=== PATIENT | female | born 1950 | race Caucasian/White ===

== ENCOUNTER 2022-08-05 10:44 | Inpatient (IN) | payer OTHER ==
[~2022-08-05] VITALS: Ht 165.1 cm; Wt 92.9 kg
[2022-08-05] MEDS ORDERED: TYLENOL 325MG325 MG PO (15:33)
[2022-08-05] MEDS ORDERED: ALBUTEROL0.83 MG/ML IH (15:35)
[2022-08-05] MEDS ORDERED: PLAVIX 75MG TAB75 MG PO (15:36)
[2022-08-05] MEDS ORDERED: LOVENOX 4040 MG/0.4 SQ (15:36)
[2022-08-05] MEDS ORDERED: KEPPRA750 MG (15:37)
[2022-08-05] MEDS ORDERED: FOLIC ACID 11 MG/TA1 PO (15:37)
[2022-08-05] MEDS ORDERED: KEPPRA750 MG PO (15:37)
[2022-08-05] MEDS ORDERED: LEVAQUIN 750MG750 M1 PO (15:38)
[2022-08-05] MEDS ORDERED: FLAGYL500 MG PO (15:38)
[2022-08-05] MEDS ORDERED: MULTI-VITAMIN W1 TA1 PO (15:39)
[2022-08-05] MEDS ORDERED: MICATIN2% TP (15:39)
[2022-08-05] MEDS ORDERED: NORVASC 10MG10 MG PO (15:44)
[2022-08-05] MEDS ORDERED: ATACAND8 MG PO (15:45)
[2022-08-05] MEDS ORDERED: ASPIRIN 81M81 MG/TA2 PO (15:45)
[2022-08-05] MEDS ORDERED: COREG12.5 MG PO (15:45)
[2022-08-05] MEDS ORDERED: LIPITOR 40MG TA40 MG PO (15:46)
[2022-08-05] MEDS ORDERED: BUSPAR10 MG (15:46)
[2022-08-05] MEDS ORDERED: BUSPAR10 MG PO (15:47)
[2022-08-05] MEDS ORDERED: BANOPHEN25 M1 PO (15:50)
[2022-08-05] MEDS ORDERED: NEURONTIN300 MG/CAP PO (16:02)
[2022-08-05] MEDS ORDERED: NEURONTIN100 MG/CAP PO (16:02)
[2022-08-05] MEDS ORDERED: ATIVAN 0.50.5 MG/TAB PO (16:03)
[2022-08-05] MEDS ORDERED: MYRBETR50MG PO (16:04)
[2022-08-05] MEDS ORDERED: PRILOTC (16:05)
[2022-08-05] MEDS ORDERED: PAXIL40 MG PO (16:07)
[2022-08-05 20:49] VITALS: BP 141/84; PULSE 106
[2022-08-06 06:10] VITALS: BP 136/87; PULSE 99; TEMP 98
--- NOTE | 2022-08-06 06:54 | NUR ---
Shift report received from cnc machinist 2nd shift RN
--- NOTE | 2022-08-06 14:44 | NUR ---
Pt resting supine in bed watching a movie on her iPad. She reports upper back itching. Benadryl given at her request. Pt. denies having pain. Denies additional needs. Call light is in her reach. Bed alarm is on
--- NOTE | 2022-08-06 15:01 | NUR ---
SW contacted the patient's to complete intake, as the patient is new to [facility]. [place] [facility] with her , Dr. Home Callahan. Dr. Callahan reports that the patient was independent with ADLs before the stroke and did not use any DME. He states that they do have canes, walkers, crutches, and transport chairs available at home. The patient's PCP is Dr. Rakel Hernandez and she receives her medications from [facility]. The patient does not have a DPOA-HC in EMR, but Dr. Callahan states that she does have one completed and that it designates him. SW reviewed the IPR Team Conference Note with Dr. Callahan and discussed how the team plans to re-evaluate him next Thursday. Dr. Callahan verbalized understanding and is in agreement to the plan. He shares that their home is incompatible with anyone that needs to go up and down stairs. He states that he may put in a stairlift, but believes that the patient is going to need [facility] care for awhile, even after IPR. 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 SERAFIN provided the IPR Team Conference Note to the patient.
[2022-08-06 17:51] VITALS: BP 115/77; PULSE 80; TEMP 98.4
--- NOTE | 2022-08-06 19:50 | NUR ---
RECEIVED RETURN CALL FROM MITCH MO. SEE NEW ORDER.
--- NOTE | 2022-08-06 19:55 | NUR ---
PT NAUSEATED . ATTEMPTED TO CALL [facility]CH MO. NO ANSWER.
--- NOTE | 2022-08-06 21:00 | NUR ---
PT RESTING IN BED. FREQUENTLY GRAVITATES TO RT SIDE OF BED. REPOSITIONED. LT SIDE FLACCID. PT ALERT ORIENTED BUT THOUGHT PROCESS IS SCATTERED. SEE MAR FOR PHENERGAN/ATIVAN/ AND BENADRYL GIVEN. PT REPORTS BACK IS ITCHY. NO REDNESS NOTED. 1500CC/DAY FLUID RESTRICTION. SEIZURE PRECAUTIONS IN PLACE. NO SEIZURE ACTIVITY. CALL LIGHT IN REACH. BED ALARM SET.
--- NOTE | 2022-08-07 02:23 | NUR ---
PT AWAKE. ALL BELONGINGS ON FLOOR. HOB ALL THE WAY UP. PT CONFUSED. PT INCONTINENT OF STOOL. PUREWICK REPLACED. CHANGED LINENS AND GOWN. REPOSITIONED PT. SEE MAR FOR BENADRYL, ATIVAN AND TYLENOL. BUTTOCKS, LOWER BACK AND GROIN HAS RED RASH. APPLIED ZINC OINTMENT. STAGE 2 QUARTER SIZE TO LT INNER BUTTOCK. AIR MATTRESS PLACED ON BED. PT ANXIOUS AND RELATES LLE HURTS. CALL LIGHT IN REACH. BED ALARM SET.
--- NOTE | 2022-08-07 04:56 | NUR ---
PT HASN'T SLEPT MUCH THROUGH THE NIGHT. RESTLESS. REPOSITIONED. CALL LIGHTIN REACH. BED ALARM SET.
[2022-08-07 06:08] VITALS: BP 134/89; PULSE 100; TEMP 97.9
[2022-08-07 06:52] LABS: CALCIUM 9.3 mg/dL (8.4-10.2); CREATININE, serum 0.82 mg/dL (0.57-1.11); POTASSIUM 3.6 mmol/L (3.5-4.5)
--- NOTE | 2022-08-07 07:11 | NUR ---
BEDSIDE REPORT DONE. PATIENT RESTIN IN BED. INFORM NURSE SHE HAD AN ACCIDENT. PATIENT HAD A LARGE BOWEL MOVEMENT.
--- NOTE | 2022-08-07 11:26 | NUR ---
ASSESSMENT DONE ORDER. PATIENT AWAKE BUT CONFUSED. TALKING TO HER SISTER AND EVEN THOUGH THEY ARE NOT THERE. PATIENT RECEIVED BENADYL AND ATIVAN THIS MORNING AT 2 PM. IT WAS HARD TO WAKE PATIENT UP THIS MORNING, DID NOT EAT MUCH. TOOK MEDUCATION WITH APPLESAUSE.
--- NOTE | 2022-08-07 18:50 | NUR ---
Patient has been very talkative today.Talking and yelling out to her husbandand kids which they were not there. We try to use the purwex on patient but that was not successful. patient urinated twice in bed. Need help stand and sit to stand is what we have been using through out the day.
--- NOTE | 2022-08-07 20:00 | NUR ---
PT VISITING WITH FAMILY. PT IS ALERT BUT CONFUSED. DOES REMEMBER SPECIFIC LONG-TERM MEMORY. THOUGHT PROCESS IS SCATTERED AND CHANGING SUBJECT MATTER FREQUENTLY. PT CANT REMEMBER SHE IS IN [facility]. VERY RESTLESS. TAKES PERSONL ITEMS SHE HAS IN BASKETS AND DUMPS ON FLOOR OR IN BED WITH HER. USING CALL LIGHT CONTINUALLY. PT INCONTINENT URINE AND STOOL. CLEANED UP 2:1. CONTINUED SEIZURE PRECAUTIONS. NO SEIZURE ACTIVITY NOTED. SEE MAR FOR MELATONIN AND BENADRYL GIVEN. PTS BACK IT ITCHY6, NO RASH NOTED. PT RESTING ON AIRMATTRESS FOR SKIN INTEGRITY. CALL LIGHT IN REACH. BED ALARM SET.
--- NOTE | 2022-08-07 22:50 | NUR ---
PT STILL VERY ANXIOUS AND RESTLESS. REPOSITIONED SEVERAL TIMES. INCONT URINE A FEW TIMES. CLEANED UP. SEE MAR FOR ATIVAN GIVEN. CALL LIGHT IN REACH. BED ALARM SET.
--- NOTE | 2022-08-08 01:47 | NUR ---
PT STILL AWAKE AND CONFUSED. RESTLESS. PULLING BLANKETS OFF THE BED. INCONTINENT. CLEANED UP AND REPOSITIONED.
--- NOTE | 2022-08-08 05:19 | NUR ---
PT RECENTLY FELL ASLEEP. NO DISTRESS.
[2022-08-08 06:07] VITALS: BP 187/88; PULSE 104; TEMP 97.6
--- NOTE | 2022-08-08 06:21 | NUR ---
GAVE AM BP MEDS THIS AM FOR B/P 187/88. ORDERED BY MITCH MO.
--- NOTE | 2022-08-08 06:51 | NUR ---
ASSESSMENT DONE ORDER. PATIENT RESTING IN BED WTIH CALL LIGHT IN REACH
[2022-08-08 09:51] VITALS: BP 104/60; PULSE 73
[2022-08-08 17:05] VITALS: BP 125/75; PULSE 80; TEMP 97.7
--- NOTE | 2022-08-08 17:58 | NUR ---
THOUGH OUT THE WHOLE DAY, PATIENT HAS BEEN UP AND DOWN IN BED. URINATED MULITPE TIME IN BED. BED CHANGE 4TIMES TODAY. SLEEP DURING THERAPY WHICH PT AND OT WAS VERY UPSET REGARDING IT. EXPLAIN TO THEM AND DOCTOR ABOUT THE SITUATION. PATIENT HAS CHRONIC ANXIETY AND NEED ATIVAN TO HELP HER RELAX.PATIENT HAS BEEN CRAVING SODA ALL DAY. STATED THAT HE WILL BRING SODA TO HER AT NIGHT BUT FOR HER TO DRINK WATER THROUGH OUT THE DAY.PATIENT IS ON A FLUID RESTRICTION. PATIENT ALREADY HAD [address] PERRIN ORDER ATIVAN Q 4 HOURS ROUTINELY TO HELP HER WITH ANXIETY AND SEROQUEL AT NIGHT TO SLEEP. I ALSO EDUCATED THE FAMILY THAT THE VISITOR IS UP TO 8PM SINCE EVERYONE IS TIRED AND NEED TO SLEEP FOR THE NEXT DAY. UNDERSTOOD(DR MARQUEZ)
--- NOTE | 2022-08-08 19:08 | NUR ---
RECEIVED CHANGE OF SHIFT REPORT FROM DAY SHIFT RN.
[2022-08-09 05:36] VITALS: BP 145/73; PULSE 96; TEMP 98.1
--- NOTE | 2022-08-09 05:55 | NUR ---
REQUESTED AND GIVEN BENADRYL FOR REPORTED COMPLAINT OF ITCHING.
--- NOTE | 2022-08-09 07:06 | NUR ---
BEDSIDE REPORT DONE. PATIENT RESTING IN BED WITH CALL LIGHT IN REACH. NO DISTRESS. ALARM ON
--- NOTE | 2022-08-09 07:07 | NUR ---
CHANGE OF SHIFT REPORT GIVEN TO DAY SHIFT RNVERONICA.
--- NOTE | 2022-08-09 10:13 | NUR ---
ASSESSMENT DONE. PATIENT SLEPT UNTIL 805AM. NIGHT NURSE INFORM THAT SHE DID NOT GIVE THE 430 ATIVAN DUE TO SHE WAS SLEEPING.SLEPT ABOUT 8 HOURS. PATIENT WAS AWAKE WHEN PT/OT ARRIVED. ATE ABOUT 50% OF HER MEALS.
[2022-08-09 17:51] VITALS: BP 111/61; PULSE 88; TEMP 98.4
--- NOTE | 2022-08-09 17:57 | NUR ---
ATIVAN HAS BEEN GIVENQ 4 HRS AND IT HAS SLIGHTLY HELP PATIENT.STILL UP AND DOWN THROUGH OUT THE DAY BUTITWASN'T BAD. WILL CONTINUE TO MONITOR
--- NOTE | 2022-08-09 19:00 | NUR ---
RECEIVED CHANGE OF SHIFT REPORT FROM DAY SHIFT RN.
[2022-08-10 06:21] VITALS: BP 167/85; PULSE 88; TEMP 98.1
--- NOTE | 2022-08-10 06:45 | NUR ---
BEDSIDE REPORT DONE. PATIENT RESTIN IN BED WITH CALL LIGHT IN REACH
[2022-08-10 10:14] LABS: CALCIUM 9.4 mg/dL (8.4-10.2); CREATININE, serum 0.91 mg/dL (0.57-1.11)
--- NOTE | 2022-08-10 11:45 | NUR ---
ASSESSMENT DONE ORDER. PATIENT ABLE TO TURN ON LEFT SIDE WTIH SLIGHT HELP BUT UNABLE TO TURN ON RIGHT. PATIENT HAS BEEN SLEEPING SINCE 12 NOON. 430 AM DOSE OF ATIVAN WAS GIVEN DUE TO PATIENT WAS SLEEPING. PATIENT HAD A LARGE BOWEL MOVEMENT DURING MY SHIFT IN THE EARLY AM 640PM
--- NOTE | 2022-08-10 19:00 | NUR ---
RECEIVED CHANGE OF SHIFT REPORT FROM DAY SHIFT RN.
--- NOTE | 2022-08-10 23:07 | NUR ---
PATIENT PASSED MANY SMALL SEMIFORMED STOOLS FROM 1999 TO 2229.
--- NOTE | 2022-08-11 00:16 | NUR ---
VERY RESTLESS AT THIS TIME. SCHEDULED ATIVAN TAKEN, PATIENT REPORTS NEEDING TO BE REPOSITIONED REPEATED AND TAKING PERSONAL BLANKETS OFF WHILE COMPLAINING OF BEING COLD. PATIENT ALSO KEEPS STATING AT TIMES "I'M GOING OUT OF MY MIND".
--- NOTE | 2022-08-11 00:35 | NUR ---
PATIENT STILL RESTLESS BUT COOPERATIVE AT THIS TIME. BRIEF CHANGED, PATIENT VOIDED, UNABLE TO KEEP PUREWICK INPLACE AT THIS TIME.
--- NOTE | 2022-08-11 00:51 | NUR ---
PATIENT INCONTINENT AGAIN WITHIN A SHORT TIME SPAN OF LAST BRIEF CHANGE, PATIENT RESTLESS AND CONSTANT ROLLING FROM BACK TO LEFT SIDE AND THROWING BLANKETS ONTO FLOOR WHILE STATING SHE IS COLD. SEE MAR FOR MEDS GIVEN UP TO THIS POINT. CALL LIGHT MOST TIMES ON FLOOR ALONG WITH BLANKETS. MORE RESTLESS TONIGHT COMPARED TO LAST NIGHT.
[2022-08-11 00:56] VITALS: BP 131/80; PULSE 93; TEMP 98.2
[2022-08-11 04:13] VITALS: BP 141/78; PULSE 90; TEMP 97.6
--- NOTE | 2022-08-11 04:16 | NUR ---
PATIENT RESTLESS STILL DESPITE MEDS GIVEN, DENIES BEING IN HOSPITAL, STATES SHE IS HOME, WANTING TO "GET INTO HOT TUB". CONTINUES TO REMOVE BLANKETS, PILLOWS WHILE SAYING SHE IS COLD AND WANTS TO GO TO SLEEP OR GET IN HOT TUB TO WARM UP. VS DONE, AFEBRILE.
--- NOTE | 2022-08-11 04:42 | NUR ---
PATIENT HAS NOT SLEPT FOR ANY LENGTH OF TIME DURING THE NIGHT SO FAR, PATIENT STATES SHE IS DREAMING OF GOING PLACING, STILL STATES SHE'S GOING TO GET INTO THE HOT TUB STATING SHE IS AT HOME, REMEMBERS THE NAME OF THIS NURSE THOUGH WHEN SHE IS REMINDED OF BEING HERE AT [facility].
--- NOTE | 2022-08-11 05:17 | NUR ---
OBSERVED PATIENT SCRATCHING R BUTTOCK AREA, CAUSING HEALING SKIN SORE TO BLEED, EDGES CLEAN, AREA CLEANED AND COVERED WITH ZINC CREAM FOR PROTECTION.
--- NOTE | 2022-08-11 07:31 | NUR ---
CHANGE OF SHIFT REPORT GIVEN TO DAY SHIFT RNKESHA.
--- NOTE | 2022-08-11 08:30 | NUR ---
Resting in bed with eyes shut; will continue to monitor.
--- NOTE | 2022-08-11 13:00 | NUR ---
Up multiple times this shift to have a BM. Patient is usually incontinent and can only tell staff she needs to use the bathroom after she has been incontinent. Up with the sit-to stand with two staff members. Patient moved her "good arm" inside of the sit to stand sling multiple times while going up to standing position. This is dangerous for the patient as she could fall out of the sling. Therefore patient requires multiple reminders about how to appropriately use the [id number]-[id number] and frequent body repositions while in the sling.
--- NOTE | 2022-08-11 17:30 | NUR ---
Finished dinner independently. Takes pills whole without difficulty. Denies any concerns or needs at this time.
--- NOTE | 2022-08-11 22:21 | NUR ---
Patient assessed around 1954. At that time, assisted up with two assist with use of full body reza lift and transferred into wheelchair as requested. pushed patient in wheelchair, and assisted back into bed afterwards. Patient very confused. Keeps taking purewick out. Incontinent of bowel and bladder. Perineal hygiene care provided, and cream applied to bottom. Excoriation/macerated areas to bottom. Patient repositioned onto side, but does move around in bed often. Assisted patient with brushing teeth. Patient in bed with call light within reach. High fall risk precautions in place. Bed alarm on.
[2022-08-12 05:26] VITALS: BP 167/87; PULSE 95; TEMP 98.1
--- NOTE | 2022-08-12 05:52 | NUR ---
Confusion continues throughout the night. Has been incontinent of bladder, and kept taking purwick out due to it being uncomfortable. Checked and changed in bed. Patient was able to get some sleep tonight after receiving PRN Benadryl around 2315. Patient in bed with call light within reach. High fall risk precautions in place. Bed alarm on.
[2022-08-12 17:19] VITALS: BP 130/68; PULSE 85; TEMP 97
--- NOTE | 2022-08-12 23:00 | NUR ---
Patient pleasantly confused, at 1940 patient assisted up with 2 assist with the use of full body reza lift and transferred into the wheelchair as requested. pushed it in wheelchair and assisted back into the bed thereafter, noted excoriation to bottom, powder and cream applied. Patient incontinent of bladder, changed the pads and linens multiple times, head to toe assessment done, call light and personal items within reach, fall precautions in place, bed alarm on.
--- NOTE | 2022-08-13 04:31 | NUR ---
Complete bed change done d/t patient soaked with urine, noted blood streaks in the pad d/t patient kept scratching her bottom, applied aquacel foam to the scratch area, will continue to monitor.
[2022-08-13 06:27] VITALS: BP 184/102; PULSE 93; TEMP 97.4
[2022-08-13 06:37] VITALS: BP 173/103
--- NOTE | 2022-08-13 07:10 | NUR ---
BEDSIDE REPORT DONE ORDER. PATIENT RESTIN IN BED WITH CALL LIGHT IN REACH
--- NOTE | 2022-08-13 08:49 | NUR ---
ASSESSMENT DONE. PATIENT HAS BEEN SLEEPING SINCE 430AM. NIGHT NURSE SAID SHE WAS UP ALL NIGHT LONG. PATIENT HAS MOUTH OPEN RESTING AT 70DEGREE UP IN BED. RESTING PEACEFULLY. LUNG SOUND CLEAR, BOWEL SOUND ACTIVE. NO EDEMA NOTED.
[2022-08-13 10:19] LABS: COLLECTION METHOD CATHETER
[2022-08-13 10:36] LABS: MUCOUS Present (NOT PRESENT); SQUAMOUS EPITHELIAL 0-2 /hpf (0-10); URINE BACTERIA None Seen /hpf (NONE SEEN); URINE RBC 0-2 /hpf (0-2)
[2022-08-13 10:53] LABS: URINE APPEARANCE Clear (CLEAR/HAZY); URINE BLOOD Negative (NEGATIVE); URINE COLOR Yellow (YELLOW); URINE GLUCOSE Negative (NEGATIVE); URINE KETONE Negative (NEGATIVE); URINE NITRATE Negative (NEGATIVE); URINE PROTEIN(semi-quant) Negative (NEGATIVE); URINE UROBILINOGEN 0.2 E.U/dL (0.2-1.0)
--- NOTE | 2022-08-13 16:14 | NUR ---
Millinery Copyist contacted patient's , Dr. Callahan to review updates from the team. SW discussed recommendation for SNF and he is in agreement. Dr. Callahan advised at this time his preferences are 1) [facility] 2) [facility]. SW faxed referrals. SW met with patient and provided team conferences notes.
[2022-08-13 17:21] VITALS: BP 132/82; PULSE 81; TEMP 98.4
--- NOTE | 2022-08-13 18:34 | NUR ---
RECEIVED CHANGE OF SHIFT REPORT FROM DAY SHIFT RN. PATIENT IN BED, SPOUSE AT BEDSIDE. EXIT ALARMS IN PLACE, CALL LIGHT WITHIN REACH.
--- NOTE | 2022-08-13 18:55 | NUR ---
Dr hill visit patiENT TODAY FOR AN EVAL REGARDING BEHAVIORAL.DECREASE ATIVAN TO TWICE A DAY AND SEROQUEL 50MG AT NIGHT.
--- NOTE | 2022-08-13 22:41 | NUR ---
PATIENT RESTLESS, NOT SLEEPING, SEE MAR FOR MEDS GIVEN. KEEPS ASKING FOR HER SPOUSE AND DAUGHTER, REPEATEDLY INFORMED SHE IS IN THE HOSPITAL, HER FAMILY MEMBERS ARE AT HOME WITH PATIENT REPLY "OH YEAH THAT'S RIGHT, YOU TOLD ME THAT" OR "THAT'S WHAT THEY KEEP TELLING ME". OBSERVED PATIENT'S R SIDED EXTREMTIES ARE CONSTANTLY MOVING, OBSERVED PATIENT'S BLANKETS/BED COVERS TAKEN OFF OF HER BODY WITH PATIENT STATING "HELP ME I'M COLD".
--- NOTE | 2022-08-14 03:18 | NUR ---
OBSERVED PATIENT HAD LLE OVER BEDRAIL WHILE LAYING ON RIGHT SIDE, PATIENT STATING THEY NEEDS TO TURN TO THEIR LEFT SIDE, HAD CALL LIGHT IN HAND, BED ALARM SET OFF. PATIENT REPOSITIONED REQUESTED.
--- NOTE | 2022-08-14 06:49 | NUR ---
Shift report received from material handler 1st shift RN
--- NOTE | 2022-08-14 06:55 | NUR ---
CHANGE OF SHIFT REPORT GIVEN TO DAY SHIFT RNJOLLY.
[2022-08-14 07:11] VITALS: BP 136/67; PULSE 85; TEMP 98
--- NOTE | 2022-08-14 09:08 | NUR ---
Pt resting supine in bed. She has had 3 incontinent stools this morning. Pt. feels like the oatmeal she ate at breakfast has caused increased frequency of stools. She reports nausea and feeling "down and out". No abd. pain. No vomiting at this time. Order received for PRN Zofran. Will administer per order. Will continue to monitor
--- NOTE | 2022-08-14 11:09 | NUR ---
Pt is off the unit for Group Therapy
[2022-08-14 11:57] LABS: BASO # 0.1 K/mm3 (0.0-0.2); BASO % 0.7 % (0.0-2.0); EOS # 0.2 K/mm3 (0.0-0.7); EOS % 2.2 % (0.0-4.0); GRAN # 5.2 K/mm3 (1.4-6.5); GRAN % 65.1 % (42.2-75.2); HEMOGLOBIN 11.7 g/dl (12.5-16.0); LYMPH % 24.5 % (20.0-51.0); MEAN CELL VOLUME 94 fl (80.0-100.0); MEAN CORPUSCULAR HEMOGLOBIN 30 pg (27-31); MEAN CORPUSCULAR HGB CONC 32 g/dl (33.0-37.0); MEAN PLATELET VOLUME 9.2 fl (7.4-10.4); MONO # 0.6 K/mm3 (0.1-0.6); MONO % 7.3 % (1.7-9.3); PLATELET COUNT 346 K/mm3 (130-400); RED BLOOD COUNT 3.89 M/mm3 (4.10-5.30); REDCELL DISTRIBUTION WIDTH-CV 14.3 % (11.5-14.5)
[2022-08-14 12:03] LABS: HEMATOCRIT 36.4 % (37.0-47.0)
[2022-08-14 12:04] LABS: ALBUMIN 3.8 gm/dL (3.4-4.8); BILIRUBIN,TOTAL 0.3 mg/dL (0.2-1.2); CALCIUM 9.5 mg/dL (8.4-10.2); CREATININE, serum 0.84 mg/dL (0.57-1.11); POTASSIUM 4.6 mmol/L (3.5-4.5); TOTAL PROTEIN 6.9 gm/dL (6.2-8.1)
--- NOTE | 2022-08-14 12:10 | NUR ---
Pt back from Group Therapy. She remains in her wheelchair to eat lunch per PT recs. She denies pain/discomfort. Denies additional needs. Call light is in her reach. Chair alarm is on
--- NOTE | 2022-08-14 12:30 | NUR ---
Pt repositioned from wheelchair to bed at her request. Left arm/leg remain flaccid. Pt required use of sit/stand lift for transfer. Call light is in her reach. Bed alarm is on.
--- NOTE | 2022-08-14 12:56 | NUR ---
Pt resting in bed c/o "trouble breathing". Sp02 94% RA. LCTAB. Pt is currently drowsy but arouses from sleep. Pt. falls asleep while trying to converse w/ this telegraphic typewriter operator. RT contacted to administer neb tx
[2022-08-14 13:00] VITALS: BP 99/55; PULSE 70; TEMP 98.2
--- NOTE | 2022-08-14 15:36 | NUR ---
Pt is awake and alert in bed visiting with friends. She reports that shortness of breath has resolved. No further c/o nausea. Pt. denies additional needs at this time. Call light is in her reach. Bed alarm is on
--- NOTE | 2022-08-14 16:17 | NUR ---
Marketing Systems Analyst spoke with Adriana at [facility] who advised they could accept but would require a CARE assessment. SERAFIN followed up with Dr. Callahan who advised he would prefer [facility] as it is close to home. Isabel at [facility] advised they would like to accept, however they are not in network with patient's [employer], so patient would have a co-pay after day 20. Isabel spoke with Dr. Callahan who would possibly be agreeable to this but wants SERAFIN to contact [facility] to inquire about in network SNFs to make a more informed decision. SERAFIN contacted [facility] Vehicle Technician, Ava (ph#[phone]) and left a message.
[2022-08-14 17:15] VITALS: BP 130/73; PULSE 71; TEMP 98
--- NOTE | 2022-08-14 18:35 | NUR ---
Pt transferred to wheelchair using sit/stand lift. Pt. currently off the unit with to walk around the hospital
--- NOTE | 2022-08-14 20:30 | NUR ---
PT IN BED. RESTLESS. ORIENTED BUT SHORT TERM CONFUSED. HS MEDS GIVEN. PT INCONTINENT OF URINE AND SMEAR STOOL. CLEANED UP. REPOSITIONED. AIR MATTRESS IN PLACE. SEIZURE PRECAUTIONS CONTINUE. NO SEIZURES. CALL LIGHT IN REACH. BED ALARM SET.
--- NOTE | 2022-08-14 22:44 | NUR ---
PT USING CALL LIGHT FREQUENTLY AND YELLING OUT. REPOSITIONED SEVERAL TIMES. PT KEEPS TAKING OFF GOWN AND BLANKETS. THROWING ITEMS OFF THE TABLE. PT CHANGED SEVERAL TIMES FOR URINE INCONTINENCE. CONTINUED ANXIETY. REASSUSRED PT. CALL LIGHT IN REACH. BED ALARM SET.
--- NOTE | 2022-08-14 23:08 | NUR ---
PT INCONTINENT OF URINE AND SMALL BM. CHANGED. ZINC OINTMENT TO BUTTOCKS. REPOSITIONED. PT C/O ITCHING ALL OVER. NO RASH NOTED. GAVE BENADRYL. PT C/O LEGS ACHEY AND RESTLESS. TYLENOL GIVEN.
--- NOTE | 2022-08-15 00:47 | NUR ---
PT DROWSY BUT STILL RESTLESS. CONTINUES TAKING OFF GOWN AND BLANKETS. REPOSITIONED PT. USING CALL LIGHT FREQUENTLY.
--- NOTE | 2022-08-15 01:39 | NUR ---
PT INCONTINENT OF URINE. CLEANED UP. PLACED GOWN BACK ON. COVERED WITH SHEET AND BLANKET. CALL LIGHT IN REACH. BED ALARM SET.
--- NOTE | 2022-08-15 02:08 | NUR ---
PT STILL RESTLESS BUT DROWSY. WILL CONTINUE TO MONITOR.
--- NOTE | 2022-08-15 05:53 | NUR ---
PT SLEEPING. INCONTINENT OF URINE. CHANGED LINENS AND BRIEF. PT SLEPT THROUGH THIS TASK. CALL LIGHT IN REACH. BED ALARM SET.
[2022-08-15 06:00] VITALS: BP 132/74; PULSE 79; TEMP 97.7
--- NOTE | 2022-08-15 06:55 | NUR ---
BEDSIDE REPORT DONE. PATIENT RESTING IN BED BUT CALLED 5 TIMES IN THE 30 MIN. AT 650 UNTIL NOW, SHE IS RESTING. CALL LIGHT IN REACH
--- NOTE | 2022-08-15 10:32 | NUR ---
ASSESSMENT DONE ORDER. PATIENT ALERT X3 BUT CONFUSED. UNABLE TO MOVE LEFT SIDE , STILL FLACCID. NO PAIN NOTED BUT VERY ANXIOUS.LUNG CLEAR IN ALL LOBES.
--- NOTE | 2022-08-15 16:11 | NUR ---
Customer Service Operator met with patient and patient's , Dr. Callahan to review discharge plan. SW advised [facility], [facility], and [facility] were all in network with patient's insurance. Patient and Dr. Callahan would prefer discharge to [facility] at this time. SERAFIN contacted Adriana at [facility] and plan will be for discharge Thursday.
[2022-08-15 18:01] VITALS: BP 135/71; PULSE 84; TEMP 98
--- NOTE | 2022-08-15 19:02 | NUR ---
RECEIVED CHANGE OF SHIFT REPORT FROM DAY SHIFT RN.
--- NOTE | 2022-08-15 22:06 | NUR ---
FOR THE PAST 2 HOURS, PATIENT ENGAGED IN FREQUENT TEARING OFF OF HOSP BRIEFS STATING SHE NEEDED TO GET ON BEDPAN FREQUENTLY, SOMETIMES WITHIN MINUTES OF LAST REQUESTS, PATIENT STATING SHE NEEDED TO PUT HER LEGS OVER EDGE OF BED THEN GET UP IN BATHROOM OR SCRATCHING AT HER BUTTOCKS. OBSERVED NO BREAKAGE OF SKIN TO BUTTOCKS, MICATIN POWDER APPLIED TO BUTTOCKS/PERIAREA.
--- NOTE | 2022-08-15 23:03 | NUR ---
PATIENT CONTINUES TO BE RESTLESS, FREQUENTLY NEEDING BRIEFS CHANGED AND REPOSITIONED. TAKES OFF HER PERSONAL BLANKETS WHILE C/O OF HOW COLD SHE IS OR NEEDING THE WEIGHT OF THE BLANKETS ON HER.
[2022-08-16 00:20] VITALS: BP 117/62
--- NOTE | 2022-08-16 03:24 | NUR ---
PATIENT CONTINUES WITH CONSTANT MOVEMENT, STATES CANNOT CALM DOWN TO SLEEP BUT IS COOPERATIVE, AND SPEAKS NORMALLY, NO AGGRESSIVE BEHAVIOR OBSERVED. REPORTS IS ALWAYS ANXIOUS AT NIGHT AND HAS A HARD TIME SLEEPING EVEN BEFORE HOSPITALIZTIONS.
--- NOTE | 2022-08-16 06:06 | NUR ---
PATIENT FINALLY SLEPT FROM AROUND 0330 UNTIL NOW, WHERE PATIENT IS STILL SLEEPING, BREATHING NONLABORED AND EVEN. DOES NOW WAKE WHEN ROUND ENTERED BY NURSING ON ROUNDS SINCE AFTER 329. EXIT ALARM REMAINS ON AND CALL LIGHT WITHIN REACH.
[2022-08-16 06:46] VITALS: BP 122/68; PULSE 68; TEMP 98.5
--- NOTE | 2022-08-16 06:59 | NUR ---
CHANGE OF SHIFT REPORT GIVEN TO DAY SHIFT RNJOLLY.
--- NOTE | 2022-08-16 07:00 | NUR ---
Shift report received from night cleaner RN
--- NOTE | 2022-08-16 09:54 | NUR ---
Pt transferred to wheelchair using sit/stand lift. Pt. is off the unit for Group Therapy
--- NOTE | 2022-08-16 10:46 | NUR ---
Pt is back from Group Therapy. Pt. transferred to toilet then to bed using sit/stand lift. Daughter is at the bedside. Pt. denies additional needs this time. Call light is within her reach. Bed alarm is on
--- NOTE | 2022-08-16 11:27 | NUR ---
Pt c/o nausea. No vomiting. Phenergan given per PRN order at pt's request. is at the bedside. Pt. denies additional needs. Call light is in her reach
--- NOTE | 2022-08-16 12:51 | NUR ---
Pt incontinent of urine - bed change completed. Skin to coccyx/sacrum is red, blanches, and is intact. No scratches noted. Skin barrier ointment applied to bruce-areas. Pt. denies additional needs. HOB elevated to approx 60 degrees so pt can sit upright to eat lunch. Call light is in her reach. Bed alarm is on
--- NOTE | 2022-08-16 13:18 | NUR ---
Pt reporting that she is "not breathing as well as I'd like to". SpO2 93% RA. LCTAB. No coughing/wheezing. Resp. even and unlabored. Pt. requesting a neb. tx. RT contacted
[2022-08-16 17:39] VITALS: BP 124/72; PULSE 81; TEMP 97.8
[2022-08-17 05:48] VITALS: BP 109/59; PULSE 61; TEMP 97.4
--- NOTE | 2022-08-17 06:59 | NUR ---
Shift report received from restaurant shift leader RN
--- NOTE | 2022-08-17 08:28 | NUR ---
Pt sitting up in bed but is drowsy. PRN Ativan was given during the mold shifter. Pt. arouses easily from sleep but falls back asleep after opening her eyes. Pt. assisted with eating breakfast. No pain or discomfort. Call light is in her reach. Bed alarm is on
--- NOTE | 2022-08-17 11:23 | NUR ---
Pt awake and lying in bed. Incontinent of urine; incontinent care provided. Pt. repositioned to supine. She denies pain/discomfort. Denies feeling anxious or short of breath. Denies additional needs. Call light is in her reach. Bed alarm is on
[2022-08-17 13:50] VITALS: BP 116/57
[2022-08-17 16:55] VITALS: BP 155/67; PULSE 72; TEMP 97.7
--- NOTE | 2022-08-17 18:50 | NUR ---
Pt transferred to [facility] then wheelchair at 's request using sit/stand lift, 2 person assistance. Pt. is currently off the unit with her
--- NOTE | 2022-08-18 02:45 | NUR ---
[id number] restless and agitated, wants something for sleep, DOMINGA Anders notified and order rec'd for IM ziprexa, dose given @ 0038 IM in rt thigh. pt remained awake and agitated, gave prn ativan @ 0145, resting with eyes closed for brief periods then awakens and yells out for spouse, frequent reminders guven that pt in hospital and spouse is at home.
[2022-08-18 05:47] VITALS: BP 149/62; PULSE 59; TEMP 98.1
--- NOTE | 2022-08-18 06:00 | NUR ---
pt is just now trying to sleep, have done numerous linen changes tonight d/t incontinence of urine, pt pulls clothing and bedding off of bed and throws on floor, requests numerous times to be repositioned, within minutes of staff leaving room, she is back in same position, crooked/crossways in bed. calls out for even though she has had frequent reminders that she is in the hospital and he is at home. call light in place, bed alarms on
[2022-08-18] MEDS ORDERED: PLAVIX 75MG TAB75 MG PO (09:21)
[2022-08-18] MEDS ORDERED: LIPITOR 40MG TA40 MG PO (09:21)
[2022-08-18] MEDS ORDERED: SEROQUEL50 MG PO (09:22)
[2022-08-18] MEDS ORDERED: KEPPRA750 MG PO (09:22)
[2022-08-18] MEDS ORDERED: ZOFRAN ODT4 MG PO (09:24)
[2022-08-18] MEDS ORDERED: DESENEX TP (09:24)
[2022-08-18] MEDS ORDERED: ZINC OXIDE 28GM TOP (09:25)
[2022-08-18] MEDS ORDERED: THIAMINE 1100 MG/TAB PO (09:26)
[2022-08-18] MEDS ORDERED: ATIVAN 0.50.5 MG/TAB PO ×2 (09:26)
[2022-08-18] MEDS ORDERED: MELATIN 3 MG-11 TAB PO (09:26)
[2022-08-18] MEDS ORDERED: PHENERGAN 25 TA25 MG PO (10:19)
--- NOTE | 2022-08-18 13:59 | NUR ---
Has lack of transportation kept you from medical appts, meetings, work, or from getting things needed for daily living? NO How often do you feel lonely or isolated from those around you? OCCASIONALLY Over the past 5 days, how much of the time has pain made it hard for you to sleep? RARELY/NO AT ALL Over the past 5 days, how often have you limited your participation in therapy due to pain? OCCASIONALLY Over the past 5 days, how often have you limited your day-to-day activities because of pain? OCCASIONALLY
--- NOTE | 2022-08-18 14:49 | NUR ---
report called to [facility], pt transported to exit per , pt dismissed today, no further concerns
--- NOTE | 2022-08-18 16:10 | NUR ---
Director Of Informatics made arrangements for patient's discharge to [facility] today. Patient is agreeable to this plan. SERAFIN met with patient and completed CARE assessment, per [facility]'s request. SERAFIN faxed CARE to [facility] and also emailed it to [facility]. SERAFIN faxed discharge orders. Transport time set for 1400. SERAFIN contacted Dr. Callahan, patient's and notified him of discharge. Dr. Rakel Hernandez to follow patient's care at [facility].
--- NOTE | 2022-08-19 13:44 | NUR ---
Discharge QIM scores were reviewed by the team. Code of 1 chosen for toilet hygiene was determined by team discussion to be the most usual performance for this patient during the discharge assessment period. Code of 1 chosen for toilet transfer was determined by team discussion to be the most usual performance for this patient during the discharge assessment period. Code of 2 chosen for upper body dressing was determined by team discussion to be the most usual performance for this patient during the discharge assessment period. Code of 1 chosen for sit to lying was determined by team discussion to be the most usual performance for this patient during the discharge assessment period. Code of 2 chosen for lying to sitting on side of bed was determined by team discussion to be the most usual performance for this patient during the discharge assessment period.
== END 2022-08-18 14:50 | DRG 57 ==
PROVIDERS: Internal Medicine; ADMIT Physical Medicine & Rehabilitation Sports Medicine
DX: I69.354 Hemiplegia and hemiparesis following cerebral infarction affecting left non-dominant side (principal); E87.1 Hypo-osmolality and hyponatremia; G93.49 Other encephalopathy; I69.391 Dysphagia following cerebral infarction; I27.20 Pulmonary hypertension, unspecified; E83.42 Hypomagnesemia; E87.6 Hypokalemia; I10 Essential (primary) hypertension; F41.9 Anxiety disorder, unspecified; K21.9 Gastro-esophageal reflux disease without esophagitis; F32.A Depression, unspecified; G62.9 Polyneuropathy, unspecified; G47.00 Insomnia, unspecified; R26.89 Other abnormalities of gait and mobility; L89.302 Pressure ulcer of unspecified buttock, stage 2; R32 Unspecified urinary incontinence; R21 Rash and other nonspecific skin eruption; F10.21 Alcohol dependence, in remission; F42.9 Obsessive-compulsive disorder, unspecified; D72.828 Other elevated white blood cell count; R94.31 Abnormal electrocardiogram [ECG] [EKG]; R50.9 Fever, unspecified; I65.23 Occlusion and stenosis of bilateral carotid arteries; Z95.818 Presence of other cardiac implants and grafts; Z79.82 Long term (current) use of aspirin; Z73.6 Limitation of activities due to disability; Z79.02 Long term (current) use of antithrombotics/antiplatelets; Z79.899 Other long term (current) drug therapy; Z79.2 Long term (current) use of antibiotics; Z79.01 Long term (current) use of anticoagulants; R11.0 Nausea
CPT/HCPCS: A9284; J1650

== ENCOUNTER → 2023-02-01 | Outpatient (REF) | payer BC ==
[~2023-02-01] MED LIST: ALBUTEROL0.83 MG/ML IH; ASPIRIN 81M81 MG/TA2 PO; ATACAND8 MG PO; ATIVAN 0.50.5 MG/TAB PO; BANOPHEN25 M1 PO; BUSPAR10 MG; BUSPAR10 MG PO; COREG12.5 MG PO; DESENEX TP; FLAGYL500 MG PO; FOLIC ACID 11 MG/TA1 PO; KEPPRA750 MG; KEPPRA750 MG PO; LEVAQUIN 750MG750 M1 PO; LIORESAL 1010 MG/TAB PO; LIPITOR 10MG10 MG PO; LIPITOR 40MG TA40 MG PO; LOVENOX 4040 MG/0.4 SQ; MELATIN 3 MG-11 TAB PO; MELATONIN5 M1 SL; MICATIN2% TP; MIRALAX PA17 GM/Dose PO; MULTI-VITAMIN W1 TA1 PO; MYRBETR50MG PO; NEURONTIN100 MG/CAP PO; NEURONTIN300 MG/CAP PO; NEXIUM 20MG20 MG PO; NORVASC 10MG10 MG PO; PAXIL40 MG PO; PHENERGAN 25 TA25 MG PO; PLAVIX 75MG TAB75 MG PO; PRILOTC; SEROQUEL 1100 MG/TAB PO; SEROQUEL50 MG PO; TESSALON P100 MG/CAP PO; THIAMINE 1100 MG/TAB PO; TYLENOL 325MG325 MG PO; TYLENOL 8 HR PO; VALIUM 5MG T5 MG/TAB PO; VITAMINS A AND1 OIN TOP; VOLTAREN GEL 1%1 TU TP; ZINC OXIDE 28GM TOP; ZOFRAN ODT4 MG PO
[2023-02-01 13:48] LABS: CALCIUM 9.3 mg/dL (8.4-10.2); CREATININE, serum 0.82 mg/dL (0.57-1.11); POTASSIUM 3.9 mmol/L (3.5-4.5)
== END ==
LOC: ZCOL.LAB 13:28
PROVIDERS: Internal Medicine
DX: E78.5 Hyperlipidemia, unspecified (principal)

== ENCOUNTER → 2023-06-20 | Outpatient (CLI) | payer BC ==
[~2023-06-20] MED LIST changes: +CEFTIN500 MG PO; +KLONOPIN 1MG1 MG PO; +LASIX 20MG TABL20 MG PO; +LASIX 40MG TABL40 MG PO; +LIPITOR 80MG80 MG PO; +ONE DAILY ESSE0.5 MG PO; +OXYGEN NASAL.CANN; +PROTONIX 40MG T40 MG PO; +ZESTRIL2.5 MG PO
[2023-06-20 19:06] LABS: COLLECTION METHOD CLEAN CATCH
[2023-06-20 19:52] LABS: SQUAMOUS EPITHELIAL None Seen /hpf (0-10); URINE BACTERIA Rare /hpf (NONE SEEN); URINE RBC 0-2 /hpf (0-2)
[2023-06-20 19:53] LABS: PH 6.5 (5.0-8.5); URINE APPEARANCE Cloudy (CLEAR/HAZY); URINE BLOOD 1+ (NEGATIVE); URINE COLOR Yellow (YELLOW); URINE GLUCOSE Negative (NEGATIVE); URINE KETONE Negative (NEGATIVE); URINE NITRATE Negative (NEGATIVE); URINE PROTEIN(semi-quant) 3+ (NEGATIVE); URINE UROBILINOGEN 0.2 E.U/dL (0.2-1.0)
== END ==
LOC: COL.LAB 17:53
DX: N39.0 Urinary tract infection, site not specified (principal)

== ENCOUNTER → 2023-07-18 | Outpatient (CLI) | payer BC ==
[2023-07-18 14:43] LABS: ALBUMIN 3.1 gm/dL (3.4-4.8); BILIRUBIN,TOTAL 0.3 mg/dL (0.2-1.2); CALCIUM 8.8 mg/dL (8.4-10.2); CREATININE, serum 0.81 mg/dL (0.57-1.11); POTASSIUM 4.6 mmol/L (3.5-4.5); TOTAL PROTEIN 5.7 gm/dL (6.2-8.1)
== END ==
LOC: COL.LAB 13:37
PROVIDERS: Internal Medicine
DX: I10 Essential (primary) hypertension (principal)

== ENCOUNTER → 2023-08-06 | Outpatient (CLI) | payer BC ==
[2023-08-06 11:10] LABS: BASO % 0.4 % (0.0-2.0); EOS # 0.1 K/mm3 (0.0-0.7); EOS % 1.6 % (0.0-4.0); GRAN # 4.9 K/mm3 (1.4-6.5); GRAN % 72.4 % (42.2-75.2); HEMOGLOBIN 10.7 g/dl (12.5-16.0); LYMPH # 1.4 K/mm3 (1.2-3.4); MEAN CELL VOLUME 97 fl (80.0-100.0); MEAN CORPUSCULAR HEMOGLOBIN 31 pg (27-31); MEAN CORPUSCULAR HGB CONC 32 g/dl (33.0-37.0); MEAN PLATELET VOLUME 9.9 fl (7.4-10.4); MONO # 0.4 K/mm3 (0.1-0.6); MONO % 5.5 % (1.7-9.3); PLATELET COUNT 204 K/mm3 (130-400); RED BLOOD COUNT 3.46 M/mm3 (4.10-5.30)
[2023-08-06 11:17] LABS: HEMATOCRIT 33.5 % (37.0-47.0)
[2023-08-06 11:27] LABS: ALBUMIN 3.3 gm/dL (3.4-4.8); BILIRUBIN,TOTAL 0.3 mg/dL (0.2-1.2); CALCIUM 7.6 mg/dL (8.4-10.2); CREATININE, serum 0.74 mg/dL (0.57-1.11); POTASSIUM 4.3 mmol/L (3.5-4.5)
== END ==
LOC: ZCOL.LAB 11:00
PROVIDERS: Internal Medicine
DX: E78.5 Hyperlipidemia, unspecified (principal); I25.10 Atherosclerotic heart disease of native coronary artery without angina pectoris

== ENCOUNTER → 2023-10-10 | Outpatient (CLI) | payer MEDICARE, BC ==
[2023-10-10 10:52] LABS: COLLECTION METHOD CATHETER
[2023-10-10 11:27] LABS: SQUAMOUS EPITHELIAL 0-2 /hpf (0-10); URINE APPEARANCE Cloudy (CLEAR/HAZY); URINE BACTERIA Many /hpf (NONE SEEN); URINE BLOOD Negative (NEGATIVE); URINE COLOR Yellow (YELLOW); URINE GLUCOSE Negative (NEGATIVE); URINE KETONE Negative (NEGATIVE); URINE NITRATE Positive (NEGATIVE); URINE PROTEIN(semi-quant) Negative (NEGATIVE); URINE UROBILINOGEN 0.2 E.U/dL (0.2-1.0)
== END ==
LOC: COL.LAB 10:31
PROVIDERS: Internal Medicine
DX: N39.0 Urinary tract infection, site not specified (principal)

== ENCOUNTER 2023-11-01 14:11 | Inpatient (IN) | payer BC, MEDICARE ==
[2023-11-01] VITALS (226 sets, daily range): BP systolic 129; BP diastolic 58; PULSE 82; TEMP 98.2; O2SAT 83–100
[~2023-11-01] VITALS: Ht 167.6 cm; Wt 95.8 kg
[~2023-11-01 14:11] MED LIST changes: +COREG 25MG25 MG/TAB PO; -COREG12.5 MG PO; +dexAMETHasone 10 MG/ML VIAL IV SCH
[2023-11-01] MEDS ORDERED: levoFLOXacin 750 MG TAB PO ONE (14:30)
[2023-11-01] MEDS ORDERED: NS 500 ML IV ONE (14:30)
[2023-11-01 14:44] LABS: ARTERIAL BLD GAS O2 SATURATION 96.2 % (92-100); ARTERIAL BLD GAS TCO2 CT 31.6; ARTERIAL BLOOD GAS BASE EXCESS 3.7 (-2-2); ARTERIAL BLOOD GAS PCO2 52.8 mmHg (35-45); ARTERIAL BLOOD GAS PO2 80.4 mmHg (80-100); ARTERIAL BLOOD GAS pH 7.37 (7.35-7.45)
[2023-11-01 14:48] LABS: ALANINE AMINOTRANSFERASE 13 U/L (0-55); ALBUMIN 3.6 gm/dL (3.4-4.8); ALKALINE PHOSPHATASE 62 U/L (40-150); ANION GAP 10 mmol/L (7-16); AST,SGOT 15 U/L (5-34); BILIRUBIN,TOTAL 0.3 mg/dL (0.2-1.2); BLOOD UREA NITROGEN 9 mg/dL (10-20); CALCIUM 8.6 mg/dL (8.4-10.2); CARBON DIOXIDE 25 mmol/L (23-31); CHLORIDE 105 mmol/L (98-107); CREATININE, serum 0.75 mg/dL (0.57-1.11); GLUCOSE 120 mg/dL (70-99); SODIUM 140 mmol/L (136-145)
[2023-11-01 14:49] LABS: BASO % 0.2 % (0.0-2.0); EOS # 0.1 K/mm3 (0.0-0.7); EOS % 1.5 % (0.0-4.0); GRAN # 7.3 K/mm3 (1.4-6.5); GRAN % 83.7 % (42.2-75.2); HEMATOCRIT 37.3 % (37.0-47.0); HEMOGLOBIN 11.7 g/dl (12.5-16.0); LYMPH # 0.9 K/mm3 (1.2-3.4); LYMPH % 9.7 % (20.0-51.0); MEAN CELL VOLUME 97 fl (80.0-100.0); MEAN CORPUSCULAR HEMOGLOBIN 30 pg (27-31); MEAN CORPUSCULAR HGB CONC 31 g/dl (33.0-37.0); MEAN PLATELET VOLUME 10.6 fl (7.4-10.4); MONO # 0.4 K/mm3 (0.1-0.6); MONO % 4.7 % (1.7-9.3); PLATELET COUNT 183 K/mm3 (130-400); RED BLOOD COUNT 3.86 M/mm3 (4.10-5.30); REDCELL DISTRIBUTION WIDTH-CV 13.7 % (11.5-14.5)
--- NOTE | 2023-11-01 14:55 | NUR ---
Arrived to the unit via ER. Alert and oriented and on oxymask with 02 saturations in the mid 90's. Will keep on oxymask at this time if tolerates. Other VS stable. Call light left within reach and bed alarm activated.
[2023-11-01 14:56] LABS: TROPONIN-I < 0.010 ng/mL (0.00-0.033)
[2023-11-01] MEDS ORDERED: Furosemide 100 MG/10 ML VIAL IV ONE (15:15)
[2023-11-01 15:32] LABS: COLLECTION METHOD CATHETER
[2023-11-01 15:43] LABS: URINE APPEARANCE Cloudy (CLEAR/HAZY); URINE BACTERIA Many /hpf (NONE SEEN); URINE BLOOD 1+ (NEGATIVE); URINE COLOR Yellow (YELLOW); URINE GLUCOSE Negative (NEGATIVE); URINE KETONE Negative (NEGATIVE); URINE NITRATE Negative (NEGATIVE); URINE PROTEIN(semi-quant) Negative (NEGATIVE); URINE UROBILINOGEN 0.2 E.U/dL (0.2-1.0)
[2023-11-01] MEDS ORDERED: AMOXICILLIN 8751 TAB PO (16:14)
[2023-11-01] MEDS ORDERED: Acetaminophen 500 MG TAB PO PRN (16:15)
[2023-11-01] MEDS ORDERED: methylPREDNISolone Sod Succ 40 MG/ML VIAL IV SCH (16:15)
[2023-11-01] MEDS ORDERED: Ondansetron 4 MG/2 ML VIAL IV PRN (16:15)
[2023-11-01] MEDS ORDERED: DULCOLAX TAB5 MG PO (16:15)
[2023-11-01] MEDS ORDERED: Albuterol/Ipratropium 3 MG-0.5 MG/3 ML Neb Soln IH SCH (16:15)
[2023-11-01] MEDS ORDERED: Albuterol/Ipratropium 3 MG-0.5 MG/3 ML Neb Soln IH PRN (16:15)
[2023-11-01] MEDS ORDERED: IMODIUM 2MG CAPS2 MG PO (16:16)
[2023-11-01] MEDS ORDERED: ATIVAN 0.50.5 MG/TAB PO (16:16)
[2023-11-01] MEDS ORDERED: KLONOPIN 0.5MG0.5 MG PO (16:17)
[2023-11-01] MEDS ORDERED: ALBUTEROL0.83 MG/ML IH (16:18)
[2023-11-01] MEDS ORDERED: MIRALAX PA17 GM/Dose PO (16:20)
[2023-11-01] MEDS ORDERED: VOLTAREN GEL 1%1 TU TP (16:20)
[2023-11-01] MEDS ORDERED: LOTSPY TOP ×2 (16:21→16:22)
[2023-11-01] MEDS ORDERED: Carvedilol 25 MG TAB PO SCH (17:00)
[2023-11-01] MEDS ORDERED: Benzonatate 100 MG CAP PO PRN (17:15)
[2023-11-01] MEDS ORDERED: BUSPAR10 MG PO (17:53)
--- NOTE | 2023-11-01 18:15 | NUR ---
Patient's left to eat dinner. When he left patient became anxious and started repeatedly using the call light to call in the nurse or just talk to the telemetry desk. Discussed with the hospitalist about re-starting patient's home meds for her anxiety. Will await further orders.
[2023-11-01] MEDS ORDERED: LORazepam 2 MG/ML 1 ML VIAL IV ONE (18:30)
[2023-11-01] MEDS ORDERED: Miconazole 2% Topical Powder BOTTLE TP SCH ×2 (21:00)
[2023-11-01] MEDS ORDERED: Furosemide 100 MG/10 ML VIAL IV SCH (21:00)
[2023-11-01] MEDS ORDERED: Melatonin 3 MG TAB PO SCH (21:00)
--- NOTE | 2023-11-01 23:17 | NUR ---
2114: aRRIVED FROM THE [facility] THIS TIME TO 8 ICU FRFOM THE ER.VSS, O2 IN PLACE 6 L/MIN BNC WITH SATS AT 92%.
[2023-11-02] VITALS (224 sets, daily range): BP systolic 96–141; BP diastolic 61–86; PULSE 68–87; TEMP 97.4–98.4; O2SAT 86–99
[2023-11-02 04:58] LABS: BASO % 0.1 % (0.0-2.0); EOS # 0.1 K/mm3 (0.0-0.7); EOS % 1.5 % (0.0-4.0); GRAN # 5.9 K/mm3 (1.4-6.5); HEMOGLOBIN 10.9 g/dl (12.5-16.0); LYMPH # 1.3 K/mm3 (1.2-3.4); LYMPH % 15.9 % (20.0-51.0); MEAN CELL VOLUME 98 fl (80.0-100.0); MEAN CORPUSCULAR HEMOGLOBIN 30 pg (27-31); MEAN CORPUSCULAR HGB CONC 31 g/dl (33.0-37.0); MEAN PLATELET VOLUME 10.4 fl (7.4-10.4); MONO # 0.6 K/mm3 (0.1-0.6); MONO % 7.2 % (1.7-9.3); PLATELET COUNT 174 K/mm3 (130-400); RED BLOOD COUNT 3.62 M/mm3 (4.10-5.30); REDCELL DISTRIBUTION WIDTH-CV 13.6 % (11.5-14.5)
[2023-11-02 05:00] LABS: HEMATOCRIT 35.3 % (37.0-47.0)
[2023-11-02 05:18] LABS: ANION GAP 11 mmol/L (7-16); BLOOD UREA NITROGEN 12 mg/dL (10-20); CALCIUM 8.8 mg/dL (8.4-10.2); CARBON DIOXIDE 30 mmol/L (23-31); CHLORIDE 100 mmol/L (98-107); CREATININE, serum 0.87 mg/dL (0.57-1.11); GLUCOSE 106 mg/dL (70-99); MAGNESIUM 1.7 mg/dL (1.6-2.6); POTASSIUM 3.7 mmol/L (3.5-4.5); SODIUM 141 mmol/L (136-145)
[2023-11-02 05:38] LABS: TSH w REFLEX 2.908 uIU/mL (0.350-4.940)
[2023-11-02 05:39] LABS: TROPONIN-I < 0.010 ng/mL (0.00-0.033)
[2023-11-02] MEDS ORDERED: Magnesium Oxide 400 MG TAB PO SCH (08:00)
[2023-11-02] MEDS ORDERED: PARoxetine HCL 10 MG TABLET PO SCH (09:00)
[2023-11-02] MEDS ORDERED: Gabapentin 300 MG CAP PO SCH (09:00)
[2023-11-02] MEDS ORDERED: Polyethylene Glycol 3350 17 GM PDS PO SCH (09:00)
[2023-11-02] MEDS ORDERED: Clopidogrel 75 MG TAB PO SCH (09:00)
--- NOTE | 2023-11-02 09:07 | NUR ---
RECEIVED REPORT FROM NIGHTSHIFT RNGERMAN. PATIENT AWAKE IN BED WATCHING TV. PATIENT PUSHES CALL LIGHT BUTTON FREQUENTLY. BED IN A LOW POSITION. CALL LIGHT WITHIN REACH.
--- NOTE | 2023-11-02 09:12 | NUR ---
HEAD TO TOE ASSESSMENT COMPLETED. PATIENT ALERT AND ORIENTATED BUT DOES HAVE SOME CONFUSION. 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 PUPILS EQUAL AND REACTIVE. HEART SOUNDS REGUALR WITH S1 AND S2. LUNG SOUNDS ARE VERY COARSE THROUGHOUT WITH EXP. WHEEZES IN UPPER LOBES BILATERALLY. BOWEL SOUNDS ACTIVE X4. MOREIRA IN PLACE DRAINING CLEAR YELLOW URINE. CALL LIGHT WITHIN REACH. BED IN A LOW POSITION
--- NOTE | 2023-11-02 09:13 | NUR ---
pass worker met with pt to complete discharge planning. Pt reports she resides in [facility]. She has her contact as , Home [phone] who lives in [place]. Pt reports she sees Dr. Hernandez and obtains medications from [facility] with no difficulties. She needs full assistance with ADLS and uses oxygen through [employer], has a wheelchair, and CPAP. Pt report she has a DPOA-HC listing her and daughter. SERAFIN advised PT/OT will evaluate her once she transfers to the medical floor today. SERAFIN called Home to ask for a DPOA-HC copy. Home reports he will bring this tomorrow. SERAFIN advised pt will transfer today to the medical floor. PT/OT pending Discharge Plan: transfer to medical, from [facility]
[2023-11-02] MEDS ORDERED: clonazePAM 0.25 MG TAB PO PRN (10:45)
--- NOTE | 2023-11-02 10:45 | NUR ---
PATIENT ARRIVED TO UNIT AWAKE AD ALERT,VSS. PATIENTS DAUGHTER AT BEDSIDE.
--- NOTE | 2023-11-02 11:00 | NUR ---
DR WOLFE CALLED AND INFORMED WHEN THIS RN WALKED INTO ROOM, PATIENT WAS AWAKE AND ALERT, SITTING UP IN BED, READING HER BOOK. PATIENT APPEARS TO BE IN NO ACUTE DISTRESS, HOWEVER KEEPS STATING SHE IS "DROWNING IN HER ANXIETY." AND IS EXPERIENCING CHEST PAIN, FEELS HOT, AND HAS A HEADACHE. CLONAZEPAM 0.25 Q6H PRN INITIATED.
[2023-11-02] MEDS ORDERED: clonazePAM 0.5 MG TAB PO PRN ×2 (12:00→16:45)
[2023-11-02] MEDS ORDERED: clonazePAM 0.25 MG TAB PO ONE (12:00)
--- NOTE | 2023-11-02 12:00 | NUR ---
HOSPITALIST CALLED AND INFORMED PATIENT HAS HIT THE CALL LIGHT EVERY 5-10 SECONDS, TO SAY SHE IS "DROWNING IN ANXIETY." LYING IN BED LISTENING TO AN AUDIO BOOK, PATIENT DOES NOT APPEAR TO BE IN DISTRESS. PATIENT STATED THE SAME COMPLAINTS EARLIER. PER MD RN CAN CHANGE CLONAZEPAM TO HER HOME DOSE OF 0.5MG. RN TO ADMINISTER X1 DOSE OF 0.25MG PO TO EQUAL HOME DOSE. SEE EMAR
[2023-11-02] MEDS ORDERED: Melatonin 3 MG TAB PO PRN (13:45)
--- NOTE | 2023-11-02 15:20 | NUR ---
INFORMED PATIENTS CALLED AND INFORMED RN THAT HE WOULD LIKE PATIENTS LORAZEPAM TO BE RE ORDERED BECAUSE SHE HAS CALLED HIM MULTIPLE TIMES AND INFORMED HIM SHE IS VERY ANXIOUS. . RN IFNORMED THE PATIENTS WE HAVE ALREADY ADMINISTERED HER HOME DOSE OF CLONAZEPAM. PATIENTS ALSO SUGGESTED WE CONSULT PATIENTS PSYCHIATRIST DR TAVERA. ORDERED RN TO CHANGE ORAL CLONAZEPAM FROM 0.5MG Q6H PRN TO Q4H PRN.
[2023-11-02] MEDS ORDERED: Furosemide 40 MG TAB PO SCH (17:00)
--- NOTE | 2023-11-02 18:52 | NUR ---
PATIENT RESTING IN BED WITH AT BEDSIDE. NO ACUTE DISTRESS NOTED. PATIENT ON 4 LITERS OF OXYGEN VIA HIGH FLOW NC. ZOSYN INFUSING INTO RIGHT AC WITH NO COMPLICATIONS NOTED. MOREIRA CATH INTACT AND DRAINING CLEAR YELLOW URINE. PATIENT CARE ASSUMED FROM [facility] AT THIS TIME. PATIENT REQUESTED DIET PEPSI AND WAS GIVEN. ALL NEEDS MET. BED IN LOW POSITION WITH WHEELS LOCKED WITH RAILS UP X3 AND CALL LIGHT WITHIN REACH.
--- NOTE | 2023-11-02 19:35 | NUR ---
PATIENT RESTING IN BED WITH TV ON WITH AT BEDSIDE. NO ACUTE DISTRESS NOTED. PATIENT ON 4 LITERS OF OXYGEN VIA HF NC. ZOSYN COMPLETED AT THIS TIME AND IV FLUSHED WITH NO COMPLICATIONS NOTED. ASSESSMENT COMPLETED. PATIENT LEFT ARM FLACID WITH LEFT HAND CONTRACTED FROM OLD STROKE. FOOT DROP NOTED TO LEFT FOOD. ALL NEEDS MET. BED IN LOW POSITION WITH WHEELS LOCKED WITH RAILS UP X3 AND CALL LIGHT WITHIN REACH.
[2023-11-02] MEDS ORDERED: QUEtiapine 100 MG TAB PO SCH (21:00)
--- NOTE | 2023-11-02 22:14 | NUR ---
PATIENT RESTING IN BED WITH BIPAP ON WITH NO ACUTE DISTRESS NOTED. PATIENT SWITCHED BACK TO 3 LITERS OF OXYGEN VIA HF NC FOR MEDICATION ADMINISTRATION. PATIENT TOLERATED WELL. PATIENT PLACED BACK ON BIPAP. PATIENT DENIES ANY NEEDS AT THIS TIME. BED IN LOW POSITION WITH WHEELS LOCKED WITH RAILS UP X3 AND CALL LIGHT WITHIN REACH. BED ALARM ON.
[2023-11-03 00:07] VITALS: BP_SYST 139
[2023-11-03 00:09] VITALS: BP_SYST 139
[2023-11-03 01:00] VITALS: BP_SYST 139
[2023-11-03 07:52] VITALS: BP_SYST 139
[2023-11-03] MEDS ORDERED: predniSONE 20 MG TAB PO SCH (08:00)
--- NOTE | 2023-11-03 08:00 | NUR ---
Patint is reting in bed Bipap in place, eyes closed, easily arousable. States it is cold, blanket provided, temp reaised. Assessment completed, meds given. No further needs at this time. Call light within reach.
[2023-11-03 09:00] VITALS: BP 137/77; PULSE 74; TEMP 97.7
[2023-11-03] MEDS ORDERED: LASIX 40MG TABL40 MG PO (10:28)
[2023-11-03] MEDS ORDERED: OMNICEF 300MG300 MG PO (10:28)
--- NOTE | 2023-11-03 11:24 | NUR ---
Division Roadmaster was notified by Hospitalist that patient is ready for discharge back to [facility] today. SERAFIN contacted Lizeth at [facility] and scheduled transport time for 1300. SERAFIN contacted patient's , Dr. Callahan to give update. SERAFIN then faxed discharge orders to Lizeth at [facility]. Discharge Plan: [facility]
[2023-11-03 11:35] LABS: CALCIUM 8.5 mg/dL (8.4-10.2); CREATININE, serum 0.97 mg/dL (0.57-1.11); POTASSIUM 3.4 mmol/L (3.5-4.5)
--- NOTE | 2023-11-03 14:00 | NUR ---
Pt was picked up byrahul bender. Report givn to GEORGE Ellington.
== END 2023-11-03 13:30 | disposition home or self-care (01) | DRG 189 ==
LOC: COL.ER 14:11 → MEDICAL 15:24 → ICU 15:24 → MEDICAL 11-02 09:43
PROVIDERS: Personal Emergency Response Attendant; ADMIT Internal Medicine
DX: J96.21 Acute and chronic respiratory failure with hypoxia (principal); I50.43 Acute on chronic combined systolic (congestive) and diastolic (congestive) heart failure; I11.0 Hypertensive heart disease with heart failure; I49.9 Cardiac arrhythmia, unspecified; F41.9 Anxiety disorder, unspecified; G62.9 Polyneuropathy, unspecified; K22.2 Esophageal obstruction; G43.909 Migraine, unspecified, not intractable, without status migrainosus; G47.30 Sleep apnea, unspecified; M81.0 Age-related osteoporosis without current pathological fracture; E87.5 Hyperkalemia; G47.00 Insomnia, unspecified; Z66 Do not resuscitate
CPT/HCPCS: A4314; J1100; J1650; J1940; J1956; J2060; J2405; J2543; J7512